=== PATIENT | female | born 1945 | race Caucasian/White ===

== ENCOUNTER → 2016-07-26 | Outpatient (CLI) | payer OTHER, MEDICARE | LOC: FIMAGING 12:44 | DX: Z12.31 Encounter for screening mammogram for malignant neoplasm of breast (principal); Z80.3 Family history of malignant neoplasm of breast; Z85.3 Personal history of malignant neoplasm of breast | CPT/HCPCS: G0202-52 ==

== ENCOUNTER → 2017-05-27 | Outpatient (CLI) | payer OTHER, MEDICARE | LOC: CIMAGING 13:19 | PROVIDERS: ATTEND Family Medicine | DX: R51 Headache (principal); S06.9X0S Unspecified intracranial injury without loss of consciousness, sequela; F07.81 Postconcussional syndrome; J32.0 Chronic maxillary sinusitis | CPT/HCPCS: 70450-PO ==

== ENCOUNTER → 2017-07-27 | Outpatient (CLI) | payer OTHER, MEDICARE | LOC: FIMAGING 10:45 | PROVIDERS: ATTEND Family Medicine | DX: Z12.31 Encounter for screening mammogram for malignant neoplasm of breast (principal); Z85.3 Personal history of malignant neoplasm of breast ==

== ENCOUNTER → 2017-10-24 | Outpatient (CLI) | payer OTHER, MEDICARE | LOC: BHLMT 10:30 | PROVIDERS: ATTEND Nurse Practitioner Family | DX: I25.10 Atherosclerotic heart disease of native coronary artery without angina pectoris (principal); R00.2 Palpitations; I49.3 Ventricular premature depolarization | CPT/HCPCS: 93005-PO ==